=== PATIENT | female | born 1980 | race Caucasian/White ===

== ENCOUNTER 2019-01-25 17:39 | Emergency (ER) | payer OTHER ==
[~2019-01-25] VITALS: Ht 165.1 cm; Wt 74.4 kg
[2019-01-25 17:48] VITALS: Ht 165.1 cm; Wt 74.4 kg
[2019-01-25 20:35] VITALS: BP 164/102
== END 2019-01-25 20:35 | disposition home or self-care (01) ==
LOC: ED 17:39
DX: N10 Acute pyelonephritis (principal); I10 Essential (primary) hypertension; Z98.890 Other specified postprocedural states
CPT/HCPCS: J0696